=== PATIENT | male | born 1965 | race American Indian/Alaskan Native ===

== ENCOUNTER 2024-04-08 00:42 | Emergency (ER) | payer OTHER, SELFPAY ==
[2024-04-08] VITALS (9 sets, daily range): BP systolic 118–128; BP diastolic 67–79; PULSE 100–105; RESP 20–34; TEMP 36.8; O2SAT 95–100; BMI 28.8
--- NOTE | 2024-04-08 00:54 | ED.AMS ---
HPI - Altered Mental Status General Chief Complaint: Altered Mental Status Stated Complaint: not sure what is going on Time Seen by Provider: 04/08/24 00:43 History of Present Illness HPI narrative: 59-year-old male with no known past medical history presents for altered mental status. History obtained from grandson at bedside. 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 The patient apparently called grandson asking for help because he was confused. When grandson came over to his apartment he found him ?unresponsive?. He had to shake the patient and he gradually woke up but seemed very confused. Family stated that they brought the patient in to make sure that he was okay. 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 In their culture after funerals they are supposed to stay awake and pray with a body every hour for 24 hours. 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 Patient does not normally drink alcohol, but had several drinks tonight prior to this event. Related Data Allergies Allergy/AdvReac Type Severity Reaction Status Date / Time No Known Drug Allergies Allergy Verified 04/08/24 01:11 Patient History Social History Smoking Status: Former smoker Exam Initial Vital Signs Initial Vital Signs: Vital Signs Blood Pressure 128/79 04/08/24 00:49 Const: Awake, alert, no acute distress, possibly intoxicated Cardiac: Tachycardia, regular rhythm RESP: unlabored, clear bilaterally, no wheezing GI: Soft, nontender, nondistended Skin: Warm, Dry, intact, no rashes Neuro: AO x3, CN II-XII grossly intact, slurred speech, transfers from wheelchair to stretcher with assistance Course Orders Ordered: ED Orders 04/08/24 00:55 CT head/brain wo con Stat Chest [XR chest 1V] Stat CBC Auto Diff [Complete Blood Count AUTO DIFF] Stat CMP [Comprehensive Metabolic Panel] Stat Ethanol (ETOH) Stat UA Complete [Urinalysis and Microscopic] Stat Urine Drug Screen, Rapid Stat EKG-12 Lead Stat Vital Signs Vital signs: Vital Signs - 8 hr 04/08/24 00:49 04/08/24 00:52 04/08/24 00:52 Temperature Pulse Rate 105 H Respiratory Rate Blood Pressure 128/79 118/72 Pulse Oximetry 96 Oxygen Delivery Method 04/08/24 00:56 04/08/24 01:00 04/08/24 01:30 Temperature 98.3 F Pulse Rate 100 H 101 H 101 H Respiratory Rate 20 29 H 34 H Blood Pressure 128/79 Pulse Oximetry 100 95 Oxygen Delivery Method Room Air MDM - Altered Mental Status Differential Diagnosis Differential diagnosis: Likely alcoholic intoxication, altered mental status and hypoglycemia Lab Data 04/08/24 01:00 04/08/24 01:00 Labs: Lab Results 04/08/24 Range/Units 01:00 WBC 13.0 H (4.5-11.0) X10^3/uL RBC 5.61 (4.5-5.9) X10^6/uL Hgb 14.1 (13.5-17.5) g/dL Hct 43.5 (41-53) % MCV 77.6 L (80-100) fL MCH 25.1 L (26-34) PG MCHC 32.3 (30-36) % RDW 16.9 H (11.6-14.8) % Plt Count 486 H (150-400) X10^3/uL Neut % (Auto) 52.2 (50-75) % Lymph % (Auto) 38.7 (25-40) % Pender % (Auto) 5.4 (3-14) % Eos % (Auto) 2.9 (2-4) % Baso % (Auto) 0.8 (0-2) % Neut # (Auto) 6800 (3387-3091) /uL Lymph # (Auto) 5000 H (6539-2745) /uL Pender # (Auto) 700 (0-900) /uL Eos # (Auto) 400 (0-450) /uL Baso # (Auto) 100 (0-100) /uL Sodium 144 (137-145) mmol/L Potassium 3.7 (3.4-5.1) mmol/L Chloride 109 H (98-107) mmol/L Carbon Dioxide 20 L (22-32) mmol/L BUN 13 (9-20) mg/dL Creatinine 1.27 H (0.66-1.25) mg/dL Estimated GFR > 60 (>60) mL/min BUN/Creatinine Ratio 10.2 (6-22) Glucose 132 H (70-100) mg/dL Calcium 9.1 (8.4-10.2) mg/dL Total Bilirubin 0.3 (0.2-1.3) mg/dL AST 31 (17-59) IU/L ALT 36 (<50) IU/L Alkaline Phosphatase 126 (38-126) U/L Total Protein 8.0 (6.3-8.2) g/dL Albumin 4.5 (3.5-5.0) g/dL Globulin 3.5 (1.7-4.1) g/dL Albumin/Globulin Ratio 1.3 (1.0-2.8) Ethyl Alcohol 235 H ( - 10) mg/dL Point of Care Testing Glucose POC 122 Imaging Data Chest x-ray: Radiologist's Impression: PROCEDURE: XR CHEST 1V INDICATIONS: AMS/UNRESPONSIVE EPISODE TECHNIQUE: One view of the chest was acquired. COMPARISON: None. FINDINGS: Surgical changes and devices: None. Lungs and pleura: Lungs are clear. No pleural effusions or pneumothorax. Mediastinum: Mediastinal contours appear normal. Heart size is normal. Bones and chest wall: No suspicious bony lesions. Overlying soft tissues appear unremarkable. IMPRESSION: No acute cardiopulmonary abnormality is seen. Dictated by: Augie Lauren M.D. on 04/08/2024 at 1:34 Approved by: Augie Lauren M.D. on 04/08/2024 at 1:35 CT scan - head: Radiologist's Impression: PROCEDURE: CT HEAD/BRAIN WO CON INDICATIONS: AMS/UNRESPONSIVE EPISODE TECHNIQUE: Noncontrast 4.5 mm thick angled axial sections acquired from the foramen magnum to the vertex, with coronal and sagittal reformats. For radiation dose reduction, the following was used: automated exposure control, adjustment of mA and/or kV according to patient size. COMPARISON: None. FINDINGS: Image quality: Diagnostic. CSF spaces: Basal cisterns are patent. No extra-axial fluid collections. Ventricles are normal in size and shape. Brain: No midline shift. No intracranial masses or hemorrhage. [place]-white matter interface is normal. Skull and face: Calvarium and visualized facial bones are intact, without suspicious lesions. Sinuses: Air-fluid level in the right maxillary sinus. IMPRESSION: No acute intracranial pathology. Mild right maxillary sinusitis. Dictated by: Augie Lauren M.D. on 04/08/2024 at 1:41 Approved by: Augie Lauren M.D. on 04/08/2024 at 1:42 ECG Data Attestation: I personally reviewed and interpreted this ECG as follows: Prior ECG tracings: not available for review Interpretation: Sinus tachycardia at 103 beats per minute. Normal CO. No ST T wave changes MDM Narrative Medical decision making narrative: Patient with confusion, brief unresponsive episode at home. Reports staying up recently for a and having several alcoholic beverages. Patient does have some slurred speech, however is able to move all extremities independently with good strength. No facial droop. Brought in for general check by worried family members. Laboratory work is reviewed WBC count 13, hemoglobin 14, platelets 486, sodium 144, potassium 3.7, creatinine 1.27, normal liver enzymes, alcohol 235. CT brain negative for acute findings. Chest x-ray negative for acute findings. Patient resting comfortably in bed, rouses to voice. Family members at bedside counseled on lab and imaging results. They state that they will take the patient home and watch over him tonight. He was advised to not mix sleep deprivation with alcohol and recommended PCP follow up. ED return precautions discussed at bedside. Discharge Plan Departure Patient Disposition: Home Clinical Impression: Alcoholic intoxication Instructions: DI for Altered Mental Status Activity Restrictions/Additional Instructions: Today your blood work showed an elevated alcohol level, but otherwise your blood work was normal. Your brain scan and chest x-ray were also normal. Make sure that you eat well for the next several days and get plenty of rest. If you stay up to many days in a row this can lead to poor mental functioning. Follow up with your primary care doctor. Stand Alone Forms: Patient Portal/API/Survey
--- NOTE | 2024-04-08 01:09 | EKG_ITS ---
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
[2024-04-08 01:12] LABS: Add Manual Diff / Slide Review NO; Basophils Absolute Auto 100 /uL (0-100); Basophils Percent Auto 0.8 % (0-2); Eosinophils Absolute Auto 400 /uL (0-450); Eosinophils Percent Auto 2.9 % (2-4); Hematocrit 43.5 % (41-53); Hemoglobin 14.1 g/dL (13.5-17.5); Lymphocytes Absolute Auto 5000 /uL (1100-4500); Lymphocytes Percent Auto 38.7 % (25-40); Mean Corpuscular HGB Conc 32.3 % (30-36); Mean Corpuscular Hemoglobin 25.1 PG (26-34); Mean Corpuscular Volume 77.6 fL (80-100); Monocytes Absolute Auto 700 /uL (0-900); Monocytes Percent Auto 5.4 % (3-14); Neutrophils Absolute Auto 6800 /uL (1500-7000); Neutrophils Percent Auto 52.2 % (50-75); Platelet Count 486 X10^3/uL (150-400); Red Blood Cell Count 5.61 X10^6/uL (4.5-5.9); Red Cell Distribution Width 16.9 % (11.6-14.8)
[2024-04-08 01:25] LABS: Alanine Aminotransferase 36 IU/L (<50); Albumin 4.5 g/dL (3.5-5.0); Albumin Globulin Ratio 1.3 (1.0-2.8); Alkaline Phosphatase 126 U/L (38-126); Aspartate Aminotransferase 31 IU/L (17-59); BUN Creatinine Ratio 10.2 (6-22); Bilirubin Total 0.3 mg/dL (0.2-1.3); Blood Urea Nitrogen 13 mg/dL (9-20); Calcium 9.1 mg/dL (8.4-10.2); Carbon Dioxide 20 mmol/L (22-32); Chloride 109 mmol/L (98-107); Estimated Glomerular Filt Rate > 60 mL/min (>60); Ethanol (ETOH) 235 mg/dL; Globulin 3.5 g/dL (1.7-4.1); Glucose 132 mg/dL (70-100); HEMOLYSIS < 15 (0-50); Potassium 3.7 mmol/L (3.4-5.1); Sodium 144 mmol/L (137-145)
== END 2024-04-08 02:04 | disposition home or self-care (01) ==
PROVIDERS: Emergency Provider Emergency Medicine
DX: F10.129 Alcohol abuse with intoxication, unspecified (principal); Y90.7 Blood alcohol level of 200-239 mg/100 ml
CPT/HCPCS: 36415; 70450; 71045; 80053; 80320; 82962; 85025; 93005; 99284